=== PATIENT | male | born 1995 | race Caucasian/White ===

== ENCOUNTER 2017-03-18 13:11 | Emergency (ER) | payer OTHER ==
[2017-03-18] MEDS ORDERED: Ondansetron 2 mg/mL 2 mL Inj ONE (13:15)
--- NOTE | 2017-03-18 13:19 | ED.REPORT ---
HPI-Overdose/Alcohol Toxicity Date of Service Mar 18, 2017 ED Provider: Lexx Phillips DO The patient is a 21 year old male who was brought to the emergency department by a friend for heroin overdose. The patient was unresponsive and cyanotic appearing. He is still breathing on his own at this time. He is completely unresponsive and unable to provide any history. The patient was given Narcan in the ED, his color improved, given another dose, and he is now awake and alert. He states he was discharged from 30 days of detox from heroin today. He shot up in the [employer] parking lot and became unresponsive. His friends gave him naloxone and then drove him to the ED. Nursing Notes Stated Complaint: UNCONSCIOUS Nursing Notes Reviewed: Yes General Time Seen by Provider: 13:15 Chief Complaint Drug overdose, Other (heroin OD) Modifying Factors: Accidental Initial Psychiatric Assessment: Deny suicidal intent/plan Hx Obtained From: Patient (initially unresponsive), Police Arrived By: Wheelchair Onset Occurred: Just prior to arrival Symptom Duration: Since onset Progression Since Onset: Constant Related History: Reports: Overdose (heroin) Recent Healthcare: No recent hospitalization Past Medical History Past Medical History Heroin abuse Family History Noncontributory Smoking History Unknown if Ever Smoker Social History Drug Use: IV drugs Other Social History: Good social support, Local resident Ambulatory Status Independent Review of Systems Unable to Obtain ROS Patient condition Physical Exam Initial Vital Signs SEE PAPER CHART Initial VS: Reviewed, Vital signs abnormal Head / Eyes: Atraumatic, Normocephalic ENT: Mucous membranes moist Extremities: No swelling Alertness: Positive: Unresponsive Initially the patient is pale and blue RESP: Initially apneic. Burn and rash to the center of his sternum. Heart Rate / Rhythm: Positive: Tachycardia Tachycardic radial pulse. Abdomen: Soft Mental Status: Positive: Unresponsive Unable to Evaluate: Positive: Unresponsive Color / Condition: Positive: Diaphoresis present Interpretation & Diagnostics Lab Results Interpretation Test 03/18/17 14:32 Hold Purple Top Tube Received (Received) Hold Red Top Tube Received (Received) Hold [place] Top Tube Received (Received) Hold [place] Top Tube Received (Received) ECG Interpretation ECG Interpretation: Sinus tachycardia Probable benign early repolarization Time: 13:23 Interpreted by: ED physician X-Ray Chest Interpretation Chest Xray Interpretation: IMPRESSION: Negative chest. No acute cardiopulmonary process is evident. Dictated by: Ravi Jackson M.D. on 03/18/2017 at 12:51 Interpretation / Wet Read by: Interpret - Radiologist Re-Eval/Medical Decision Med Decision/Clinical Course Respiratory arrest due to heroin overdose, resolved after multiple doses of IV Narcan, patient was stable and did not require intubation. Ultimately he had a rebound episode of somnolence and was redosed after ER. Will transfer care in order to continue monitoring. Source of Hx: Old records, Friend Re-Evaluation/Progress #1: Time of Eval: 13:18 Re-Evaluation/Progress Note: After getting Narcan the patient's color improved and is now alert and awake. Re-Evaluation/Progress #2: Time of Eval: 14:27 Re-Evaluation/Progress Note: Rechecked the patient. He is awake, alert, and feeling better. He is not suicidal and he wants to go to [employer] station and take the bus there. Re-Evaluation/Progress #3: Time of Eval: 14:48 Re-Evaluation/Progress Note: The patient is falling asleep. Administered additional Narcan. Counseled Regarding: Diagnosis, Lab results Discharge & Departure Shift Change Sign-Out Patient Care Transferred: Yes Discussed Complaint(s): Yes Laboratory Evaluation: Lab evaluation discussed Imaging Studies: Imaging discussed Response to Therapy: Discussed Impression: Primary Impression: Heroin overdose Encounter type: initial encounter Injury intent: accidental or unintentional Qualified Code: T40.1X1A - Poisoning by heroin, accidental ( unintentional), initial encounter Discharge Condition All VS Reviewed: Yes Condition: Stable Care Transferred to: Dr. Hernandez Care Transferred at: 15:01 Crit Care Except Billable Proc Time Spent: 30-74 minutes Services Performed: Patient management by me, Time spent at bedside, Reviewing test results, Reviewing imaging, Discussing patient care, Documentation in record, Time with fam/surrogate Scribe Attestation Portions of this note were transcribed by Anna Sigala. I, Dr. Phillips personally performed the history, physical exam and medical decision-making; I reviewed and confirmed the accuracy of the information in the transcribed note. Signed by: Deneen Palomo, 03/18/2017 at 1500. Lexx Phillips DO Mar 18, 2017 13:19 Anna Sigala Mar 18, 2017 13:22
[2017-03-18] MEDS ORDERED: 0.9% Sodium Chloride 1,000 ML IV SCH (13:20)
--- NOTE | 2017-03-18 13:54 | DRSVH ---
PROCEDURE: X-RAY CHEST ONE VIEW, PORTABLE ([id number]) INDICATIONS: Altered level of consciousness. TECHNIQUE: One view of the chest was acquired. COMPARISON: None. FINDINGS: Surgical changes and devices: None. Lungs and pleura: No pleural effusions or pneumothorax. Lungs are clear. Mediastinum: Mediastinal contours appear normal. Heart size is normal. Bones and chest wall: No suspicious bony lesions. Overlying soft tissues appear unremarkable. IMPRESSION: Negative chest. No acute cardiopulmonary process is evident. Dictated by: Ravi Jackson M.D. on 03/18/2017 at 12:51 Approved by: Ravi Jackson M.D. on 03/18/2017 at 12:52
[2017-03-18] MEDS ORDERED: _Naloxone 2 mg/2 mL 2 Syringe Kit (NASAL USE) NASAL PRN (16:25)
== END 2017-03-18 16:56 ==
LOC: SED 13:11 → EDBD 13:11 → SED 16:56
DX: T40.1X1A Poisoning by heroin, accidental (unintentional), initial encounter (principal); Y93.89 Activity, other specified; Y92.89 Other specified places as the place of occurrence of the external cause; Y99.8 Other external cause status
CPT/HCPCS: 71010; 93005; 94799; 96361; 96374; 96375; 99291; J2310; J2405; J7030